=== PATIENT | male | born 1950 | race Caucasian/White ===

== ENCOUNTER 2019-11-04 21:26 | Emergency (ER) | payer SELFPAY ==
[~2019-11-04] VITALS: Ht 172.7 cm; Wt 75.0 kg
[2019-11-05 01:00] LABS: HEMATOCRIT 44.5 % (42.0-52.0); HEMOGLOBIN 15.3 g/dL (14.0-18.0); MEAN CORPUSCULAR HEMOGLOBIN 30.6 pg (28.0-32.0); MEAN CORPUSCULAR VOLUME 89.2 fL (80.0-94.0); PLATELET 301 x1000/uL (130-400); RED BLOOD CELL COUNT 4.99 mill/uL (4.7-6.1); RED CELL DISTRIBUTION WIDTH 13.1 % (11.6-14.6)
[2019-11-05] MEDS ORDERED: SODIUM CHLORIDE 0.9% 1,000 ML IV ONE (01:00)
[2019-11-05] MEDS ORDERED: CEPHALEXIN 250MG CAPSULE PO ONE (01:00)
[2019-11-05] MEDS ORDERED: MORPHINE SULFATE 2 MG/ML CPJ (NOT FOR IM USE) IV ONE (01:00)
[2019-11-05 01:07] LABS: CHLORIDE 103 mEq/L (98-107)
[2019-11-05 01:17] LABS: CREATINE KINASE 60 IU/L (39-308)
[2019-11-05 02:28] VITALS: BP 146/63
== END 2019-11-05 02:43 | disposition home or self-care (01) ==
LOC: ER 21:31
DX: T23.192A Burn of first degree of multiple sites of left wrist and hand, initial encounter (principal); T24.012A Burn of unspecified degree of left thigh, initial encounter; T31.0 Burns involving less than 10% of body surface; Z96.659 Presence of unspecified artificial knee joint; X12.XXXA Contact with other hot fluids, initial encounter; Y93.89 Activity, other specified; Y92.018 Other place in single-family (private) house as the place of occurrence of the external cause
CPT/HCPCS: 36415; 80053; 82550; 83735; 85027; 96361; 96374; 99283; J2270; J7030